=== PATIENT | male | born 1975 | race Caucasian/White ===

== ENCOUNTER 2018-10-04 15:33 | Inpatient (IN) | payer BC ==
[~2018-10-04] VITALS: Ht 167.6 cm; Wt 113.6 kg
[2018-10-04 15:39] VITALS: BP_SYST 213
[2018-10-04] MEDS ORDERED: NACL 0.9% 1,000 ML IV ONE ×2 (15:48→17:30)
[2018-10-04] MEDS ORDERED: MAGNESIUM SULFATE 50 ML IV ONE (16:00)
[2018-10-04] MEDS ORDERED: methylPREDNISolone SOD SUCC/PF 62.5 MG/ML VIAL IVP ONE (16:00)
[2018-10-04] MEDS ORDERED: ASPIRIN 81 MG TAB.CHEW PO ONE (16:00)
[2018-10-04] MEDS ORDERED: IPRATROPIUM BROM 0.5 MG/2.5 ML VIAL.NEB (ATROVENT) IH ONE (16:00)
[2018-10-04] MEDS ORDERED: ALBUTEROL SULFATE 0.083% 2.5 MG/3 ML VIAL.NEB IH ONE (16:00)
[2018-10-04 16:22] LABS: BILIRUBIN,URINE NEGATIVE (NEGATIVE); BLOOD, URINE 1+ (NEGATIVE); CLARITY/URINE CLEAR (CLEAR); COLOR,URINE YELLOW (YELLOW); GLUCOSE,URINE NEGATIVE (NEGATIVE); KETONES,URINE NEGATIVE (NEGATIVE); LEUKOCYTE ESTERASE ,URINE NEGATIVE (NEGATIVE); NITRITE, URINE NEGATIVE (NEGATIVE); PROTEIN URINE 2+ (NEGATIVE); UROBILINOGEN,URINE 0.2 (0.2-1.0)
[2018-10-04 16:28] LABS: RBC,URINE NONE SEEN /HPF (0-3); WBC,URINE 0-3 /HPF (0-3)
[2018-10-04 16:29] LABS: BACTERIA,URINE FEW /HPF (None Seen); MUCUS,URINE None Seen /LPF (None Seen)
[2018-10-04 16:32] LABS: BARBITURATE, URINE NEGATIVE (NEG <=200); BENZODIAZEPINE, URINE NEGATIVE (NEG <=150); CANNABINOID, URINE NEGATIVE (NEG <=50); COCAINE, URINE NEGATIVE (NEG <=150); METHAMPHETAMINES SCREEN,URINE NEGATIVE (NEG <=500); OPIATE, URINE NEGATIVE (NEG <=100); PHENCYCLIDINE SCREEN,URINE NEGATIVE (NEG <=25); UR TRICYCLIC ANTIDEPRESSANTS NEGATIVE (NEG <=300); URINE AMPHETAMINE NEGATIVE (NEG <=500); URINE METHADONE NEGATIVE (NEG <=200); URINE OXYCODONE SCREEN NEGATIVE (NEG <=100); URINE PROPOXYPHENE SCREEN NEGATIVE (NEG <=300)
[2018-10-04 16:49] LABS: BASOPHILS # (AUTO) 0.1 K/uL (0.0-0.2); BASOPHILS % (AUTO) 0.5 % (0.0-2.0); EOSINOPHILS # (AUTO) 0.1 K/uL (0.0-0.4); EOSINOPHILS % (AUTO) 0.7 % (0.0-4.0); HEMOGLOBIN 16.4 g/dL (14.0-18.0); LYMPHOCYTES # (AUTO) 1.5 K/uL (1.0-5.5); LYMPHOCYTES % (AUTO) 11.8 % (20.5-51.5); MEAN CORPUSCULAR HEMOGLOBIN 31 pg (27-31); MEAN CORPUSCULAR HGB CONC 34 % (32-36); MEAN CORPUSCULAR VOLUME 92 fL (79.0-98.0); MONOCYTES % (AUTO) 7.6 % (1.7-9.3); NEUTROPHILS # (AUTO) 10.4 K/uL (1.8-7.7); NEUTROPHILS % (AUTO) 79.4 % (40.0-70.0); PLATELET COUNT (AUTO) 290 K/uL (130-430); RED BLOOD CELL COUNT(AUTO) 5.34 MIL/uL (4.2-6.2); RED CELL DISTRIBUTION WIDTH 13.2 % (9.0-15.0); WHITE BLOOD COUNT (AUTO) 13.1 K/uL (4.8-10.8)
[2018-10-04 16:55] LABS: INR 1.1 (0.80-1.20); PROTHROMBIN TIME 11.6 SECS (9.5-12.5)
[2018-10-04] MEDS ORDERED: hydrALAZINE HCL 20 MG/ML VIAL IVP ONE ×2 (17:00→18:00)
[2018-10-04 17:08] LABS: CALCIUM 8.7 mg/dL (8.4-11.0); CREATININE 1.35 mg/dL (0.55-1.30); POTASSIUM 3.7 mmol/L (3.5-5.1)
[2018-10-04 17:14] LABS: ALBUMIN 3.6 g/dL (3.4-4.8); TOTAL BILIRUBIN 1.1 mg/dL (0.0-1.0)
[2018-10-04] MEDS ORDERED: cefTRIAXone 1 GM IVPB PREMIX 50 ML IV ONE (17:30)
[2018-10-04 18:43] VITALS: BP_SYST 184
[2018-10-04 19:40] VITALS: BP_SYST 176
[2018-10-04 20:25] VITALS: BP_SYST 176
[2018-10-04] MEDS ORDERED: hydrALAZINE HCL 25 MG TABLET PO PRN (21:15)
[2018-10-04] MEDS ORDERED: MORPHINE 4 MG/ML INJ. SYRINGE IVP PRN (21:15)
[2018-10-04] MEDS ORDERED: ACETAMINOPHEN 325 MG TABLET PO PRN (21:15)
[2018-10-04] MEDS ORDERED: ALBUTEROL SULFATE 0.083% 2.5 MG/3 ML VIAL.NEB INH PRN (21:15)
[2018-10-04 21:57] VITALS: BP_SYST 184
[2018-10-04] MEDS ORDERED: FUROSEMIDE 20 MG/2 ML VIAL IVP ONE (22:00)
[2018-10-04] MEDS: NORMAL SALINE 5 ML DISP.SYRIN IVF SCH (22:49)
[2018-10-05] VITALS (7 sets, daily range): BP systolic 129–182
[2018-10-05 06:26] LABS: BASOPHILS % (AUTO) 0.1 % (0.0-2.0); HEMATOCRIT 47.7 % (36-54); HEMOGLOBIN 16.1 g/dL (14.0-18.0); LYMPHOCYTES # (AUTO) 0.7 K/uL (1.0-5.5); LYMPHOCYTES % (AUTO) 6.5 % (20.5-51.5); MEAN CORPUSCULAR HEMOGLOBIN 31 pg (27-31); MEAN CORPUSCULAR HGB CONC 34 % (32-36); MEAN CORPUSCULAR VOLUME 93 fL (79.0-98.0); MONOCYTES # (AUTO) 0.5 K/uL (0.0-1.0); MONOCYTES % (AUTO) 4.9 % (1.7-9.3); NEUTROPHILS # (AUTO) 9.6 K/uL (1.8-7.7); NEUTROPHILS % (AUTO) 88.5 % (40.0-70.0); PLATELET COUNT (AUTO) 249 K/uL (130-430); RED BLOOD CELL COUNT(AUTO) 5.15 MIL/uL (4.2-6.2); RED CELL DISTRIBUTION WIDTH 13.1 % (9.0-15.0); WHITE BLOOD COUNT (AUTO) 10.8 K/uL (4.8-10.8)
[2018-10-05] MEDS: NORMAL SALINE 5 ML DISP.SYRIN IVF SCH ×3 (06:31→20:17)
[2018-10-05 07:05] LABS: POTASSIUM 4.4 mmol/L (3.5-5.1)
[2018-10-05 07:06] LABS: ALBUMIN 3.6 g/dL (3.4-4.8); CALCIUM 8.2 mg/dL (8.4-11.0); CREATININE 1.22 mg/dL (0.55-1.30); TOTAL BILIRUBIN 1.3 mg/dL (0.0-1.0)
[2018-10-05] MEDS: ENOXAPARIN SODIUM 40 MG/0.4 ML SYRINGE SUBCUT SCH (10:31)
[2018-10-05] MEDS: CARVEDILOL 12.5 MG TABLET (COREG) PO SCH ×2 (10:32→20:07)
[2018-10-05] MEDS: ASPIRIN 81 MG TAB.CHEW PO SCH (10:33)
[2018-10-05] MEDS: FUROSEMIDE 40 MG/4 ML VIAL IVP SCH (10:33)
[2018-10-05] MEDS: LISINOPRIL 5 MG TABLET PO SCH (10:33)
[2018-10-05] MEDS ORDERED: cefTRIAXone 1 GM IVPB PREMIX 50 ML IV SCH (18:00)
[2018-10-06 00:32] VITALS: BP_SYST 134
[2018-10-06] MEDS: NORMAL SALINE 5 ML DISP.SYRIN IVF SCH (05:10)
[2018-10-06 08:16] VITALS: BP_SYST 145
[2018-10-06] MEDS: FUROSEMIDE 40 MG/4 ML VIAL IVP SCH (08:18)
[2018-10-06] MEDS: CARVEDILOL 12.5 MG TABLET (COREG) PO SCH (08:18)
[2018-10-06] MEDS: LISINOPRIL 5 MG TABLET PO SCH (08:18)
[2018-10-06] MEDS: ENOXAPARIN SODIUM 40 MG/0.4 ML SYRINGE SUBCUT SCH (08:19)
[2018-10-06] MEDS: ASPIRIN 81 MG TAB.CHEW PO SCH (08:19)
[2018-10-06 08:46] VITALS: BP_SYST 145
== END 2018-10-06 09:20 | disposition short-term general hospital (02) | DRG 304 ==
LOC: SED 15:33 → STU 18:15
PROVIDERS: ADMIT Internal Medicine; ATTEND Internal Medicine
DX: I16.1 Hypertensive emergency (principal); I50.21 Acute systolic (congestive) heart failure; N39.0 Urinary tract infection, site not specified; I47.1 Supraventricular tachycardia; I42.9 Cardiomyopathy, unspecified; Z68.41 Body mass index [BMI] 40.0-44.9, adult; I11.0 Hypertensive heart disease with heart failure; E66.01 Morbid (severe) obesity due to excess calories
CPT/HCPCS: 36415; 36600; 71045; 80053; 80061; 80307; 81000-TC; 82550-TC; 82803-TC; 83036; 83605; 83690-TC; 83880; 84484; 85025; 85379; 85610-TC; 85730-TC; 87040-TC; 87086; 93005; 93306; 94640; 94760; 96365; 96366; 96375; 96376; 99285; G0378; J0360; J0696; J1650; J1940; J2930; J3475; J7613

== ENCOUNTER 2024-03-29 00:37 | Inpatient (IN) | payer BC ==
[~2024-03-29] VITALS: Ht 167.6 cm; Wt 113.1 kg
[2024-03-29] VITALS (12 sets, daily range): BP systolic 149–207; PULSE 80–142; RESP 18–24; TEMP 97.6–98.7; O2SAT 77–99
[2024-03-29] MEDS ORDERED: NITROGLYCERIN LINGUAL 400 mCg/SPRAY ONE (00:58)
[2024-03-29] MEDS: FUROSEMIDE 40 MG/4 ML VIAL IVP ONE (01:00)
[2024-03-29] MEDS: NITROGLYCERIN LINGUAL 400 mCg/SPRAY TL ONE (01:02)
[2024-03-29 01:11] LABS: BASOPHILS # (AUTO) 0.1 K/uL (0.0-0.2); BASOPHILS % (AUTO) 0.6 % (0.0-2.0); EOSINOPHILS # (AUTO) 0.3 K/uL (0.0-0.4); EOSINOPHILS % (AUTO) 3.1 % (0.0-4.0); HEMATOCRIT 48.3 % (36-54); HEMOGLOBIN 16.6 g/dL (14.0-18.0); LYMPHOCYTES # (AUTO) 3.9 K/uL (1.0-5.5); LYMPHOCYTES % (AUTO) 34.5 % (20.5-51.5); MEAN CORPUSCULAR HEMOGLOBIN 31 pg (27-31); MEAN CORPUSCULAR HGB CONC 34 % (32-36); MEAN CORPUSCULAR VOLUME 89 fL (79.0-98.0); MONOCYTES # (AUTO) 1.1 K/uL (0.0-1.0); MONOCYTES % (AUTO) 10.1 % (1.7-9.3); NEUTROPHILS # (AUTO) 5.8 K/uL (1.8-7.7); NEUTROPHILS % (AUTO) 51.7 % (40.0-70.0); PLATELET COUNT (AUTO) 249 K/uL (130-430); RED BLOOD CELL COUNT(AUTO) 5.44 MIL/uL (4.2-6.2); RED CELL DISTRIBUTION WIDTH 13.9 % (9.0-15.0); WHITE BLOOD COUNT (AUTO) 11.2 K/uL (4.8-10.8)
[2024-03-29 01:35] LABS: INFLUENZA TYPE A Negative (NEGATIVE); INFLUENZA TYPE B NEGATIVE (NEGATIVE)
[2024-03-29 01:51] LABS: ANION GAP 13 (5-15); CALCIUM 9.1 mg/dL (8.4-11.0); CARBON DIOXIDE 26 mmol/L (23-29); CHLORIDE 97 mmol/L (98-107); CREATININE 1.27 mg/dL (0.55-1.30); GFR AFRICAN AMERICAN 79 mL/min (>90); GLUCOSE 243 mg/dL (74-106); POTASSIUM 3.1 mmol/L (3.5-5.1); SODIUM SERUM 136 mmol/L (136-145); UREA NITROGEN, BLOOD 20 mg/dL (8-21)
[2024-03-29 01:54] LABS: PROTHROMBIN TIME 10.1 SECS (9.5-12.5)
[2024-03-29 02:00] LABS: GFR NON AFRICAN-AMERICAN 65 mL/min (>90)
[2024-03-29] MEDS: ASPIRIN 325 MG TABLET PO ONE (02:04)
[2024-03-29] MEDS: POTASSIUM CHLORIDE 20 MEQ/PKT PACKET PO ONE (02:22)
[2024-03-29] MEDS: IPRATROPIUM/ALBUTEROL SULFATE 3 ML AMPUL.NEB (DUONEB) INH ONE (04:03)
[2024-03-29] MEDS ORDERED: ONDANSETRON HCL 4 MG/2 ML VIAL IVP PRN ×2 (04:30→10:30)
[2024-03-29] MEDS ORDERED: MORPHINE 2 MG/ML INJ. SYRINGE IVP PRN ×2 (04:30→10:30)
[2024-03-29 05:07] LABS: BLOOD GAS HCO3 23.1 mmol/L (21.0-27.0); BLOOD GAS PCO2 41.7 mmHg (32.0-45.0); BLOOD GAS PH 7.362 (7.350-7.450); BLOOD GAS PO2 211.5 mmHg (75.0-100.0)
[2024-03-29 05:08] LABS: ABG O2 SAT% ESTIMATE 99.4 % (94.0-100.0); BLOOD GAS BASE EXCESS -2.2 mmol/L (-3.0-3.0)
[2024-03-29] MEDS: IPRATROPIUM/ALBUTEROL SULFATE 3 ML AMPUL.NEB (DUONEB) INH SCH (07:05)
[2024-03-29] MEDS: FUROSEMIDE 40 MG/4 ML VIAL IVP SCH (08:28)
[2024-03-29] MEDS: hydrALAZINE HCL 20 MG/ML VIAL IVP ONE (09:24)
[2024-03-29] MEDS ORDERED: NALOXONE HCL 0.4 MG/ML AMP (NARCAN) IVP PRN (10:30)
[2024-03-29] MEDS ORDERED: HYDROcodone/ACETAMIN 5-325 MG TAB (NORCO/ VICODIN) PO PRN (10:30)
[2024-03-29] MEDS ORDERED: HYDROcodone/ACETAMIN 10-325 MG TAB PO PRN (10:30)
[2024-03-29] MEDS: METOPROLOL TARTRATE 25 MG TABLET PO ONE (10:43)
[2024-03-29 11:02] LABS: BASOPHILS % (AUTO) 0.5 % (0.0-2.0); EOSINOPHILS # (AUTO) 0.1 K/uL (0.0-0.4); EOSINOPHILS % (AUTO) 0.9 % (0.0-4.0); HEMATOCRIT 43.7 % (36-54); HEMOGLOBIN 15.4 g/dL (14.0-18.0); LYMPHOCYTES # (AUTO) 1.6 K/uL (1.0-5.5); LYMPHOCYTES % (AUTO) 17.7 % (20.5-51.5); MEAN CORPUSCULAR HEMOGLOBIN 31 pg (27-31); MEAN CORPUSCULAR HGB CONC 35 % (32-36); MEAN CORPUSCULAR VOLUME 88 fL (79.0-98.0); MONOCYTES # (AUTO) 0.6 K/uL (0.0-1.0); MONOCYTES % (AUTO) 7.3 % (1.7-9.3); NEUTROPHILS # (AUTO) 6.5 K/uL (1.8-7.7); NEUTROPHILS % (AUTO) 73.6 % (40.0-70.0); PLATELET COUNT (AUTO) 238 K/uL (130-430); RED BLOOD CELL COUNT(AUTO) 4.95 MIL/uL (4.2-6.2); RED CELL DISTRIBUTION WIDTH 14.6 % (9.0-15.0); WHITE BLOOD COUNT (AUTO) 8.8 K/uL (4.8-10.8)
[2024-03-29 11:11] LABS: BILIRUBIN,URINE NEGATIVE (NEGATIVE); BLOOD, URINE NEGATIVE (NEGATIVE); CLARITY/URINE CLEAR (CLEAR); COLOR,URINE YELLOW (YELLOW); GLUCOSE,URINE 1+ (NEGATIVE); KETONES,URINE NEGATIVE (NEGATIVE); LEUKOCYTE ESTERASE ,URINE NEGATIVE (NEGATIVE); NITRITE, URINE NEGATIVE (NEGATIVE); PH,URINE 5.5 (5.0-8.0); PROTEIN URINE NEGATIVE (NEGATIVE); UROBILINOGEN,URINE 0.2 (0.2-1.0)
[2024-03-29 11:21] LABS: ALBUMIN 3.3 g/dL (3.4-4.8); CALCIUM 8.7 mg/dL (8.4-11.0); CREATININE 1.5 mg/dL (0.55-1.30); POTASSIUM 4.1 mmol/L (3.5-5.1); TOTAL BILIRUBIN 0.7 mg/dL (0.0-1.0)
[2024-03-29 11:29] LABS: BARBITURATE, URINE NEGATIVE (NEG <=200)
[2024-03-29 11:30] LABS: BENZODIAZEPINE, URINE NEGATIVE (NEG <=150); CANNABINOID, URINE NEGATIVE (NEG <=50); COCAINE, URINE NEGATIVE (NEG <=150); METHAMPHETAMINES SCREEN,URINE NEGATIVE (NEG <=500); OPIATE, URINE NEGATIVE (NEG <=100); PHENCYCLIDINE SCREEN,URINE NEGATIVE (NEG <=25); UR TRICYCLIC ANTIDEPRESSANTS NEGATIVE (NEG <=300); URINE AMPHETAMINE NEGATIVE (NEG <=500); URINE METHADONE NEGATIVE (NEG <=200); URINE OXYCODONE SCREEN NEGATIVE (NEG <=100)
[2024-03-29 11:50] LABS: BACTERIA,URINE RARE /HPF (None Seen); RBC,URINE 0-3 /HPF (0-3); WBC,URINE 0-3 /HPF (0-3)
[2024-03-29] MEDS: LOSARTAN POTASSIUM 25 MG TABLET PO ONE (14:31)
[2024-03-29] MEDS: CARVEDILOL 6.25 MG TABLET (COREG) PO ONE (14:31)
[2024-03-29] MEDS ORDERED: DEXTROSE 50% JECT 50 ML DISP.SYRIN IVP PRN (15:00)
[2024-03-29] MEDS ORDERED: GLUCOSE (DEXTROSE) ORAL GEL -Adults PO PRN (15:00)
[2024-03-29] MEDS: INSULIN GLARGINE 100 UNITS/ML, 10 ML VIAL SUBCUT ONE (15:43)
[2024-03-29] MEDS ORDERED: IBUP-23 PO (15:52)
[2024-03-29] MEDS ORDERED: LISI-209 PO ×2 (15:54→16:08)
[2024-03-29] MEDS ORDERED: CARV10CP10 PO (16:10)
[2024-03-29] MEDS: hydrALAZINE HCL 25 MG TABLET PO ONE (16:35)
[2024-03-29] MEDS: INSULIN REGULAR, HUMAN 100 UNITS/ML, 3 ML VIAL (humuLIN R) SUBCUT PRN (18:11)
[2024-03-29] MEDS: IPRATROPIUM/ALBUTEROL SULFATE 3 ML AMPUL.NEB (DUONEB) ONE ×3 (19:49→23:42)
[2024-03-29] MEDS: CARVEDILOL 6.25 MG TABLET (COREG) PO SCH (20:38)
[2024-03-29] MEDS: hydrALAZINE HCL 25 MG TABLET PO SCH (20:39)
[2024-03-29] MEDS ORDERED: LOSARTAN POTASSIUM 25 MG TABLET PO SCH (21:00)
[2024-03-29] MEDS ORDERED: METOPROLOL TARTRATE 25 MG TABLET PO SCH (21:00)
[2024-03-30] VITALS (9 sets, daily range): BP systolic 141–161; PULSE 80–94; RESP 16–18; TEMP 97.2–98.8; O2SAT 94–100
[2024-03-30] MEDS: IPRATROPIUM/ALBUTEROL SULFATE 3 ML AMPUL.NEB (DUONEB) ONE ×6 (03:32→22:34)
[2024-03-30 07:16] LABS: BASOPHILS # (AUTO) 0.1 K/uL (0.0-0.2); BASOPHILS % (AUTO) 0.5 % (0.0-2.0); EOSINOPHILS # (AUTO) 0.2 K/uL (0.0-0.4); EOSINOPHILS % (AUTO) 2.2 % (0.0-4.0); HEMATOCRIT 41.4 % (36-54); HEMOGLOBIN 14.3 g/dL (14.0-18.0); LYMPHOCYTES # (AUTO) 2.3 K/uL (1.0-5.5); LYMPHOCYTES % (AUTO) 23.7 % (20.5-51.5); MEAN CORPUSCULAR HEMOGLOBIN 31 pg (27-31); MEAN CORPUSCULAR HGB CONC 34 % (32-36); MEAN CORPUSCULAR VOLUME 89 fL (79.0-98.0); MONOCYTES % (AUTO) 10.5 % (1.7-9.3); NEUTROPHILS # (AUTO) 6.2 K/uL (1.8-7.7); NEUTROPHILS % (AUTO) 63.1 % (40.0-70.0); PLATELET COUNT (AUTO) 209 K/uL (130-430); RED BLOOD CELL COUNT(AUTO) 4.64 MIL/uL (4.2-6.2); RED CELL DISTRIBUTION WIDTH 14.1 % (9.0-15.0); WHITE BLOOD COUNT (AUTO) 9.9 K/uL (4.8-10.8)
[2024-03-30 07:38] LABS: ALBUMIN 3.1 g/dL (3.4-4.8); CALCIUM 8.7 mg/dL (8.4-11.0); CREATININE 1.62 mg/dL (0.55-1.30); POTASSIUM 4.4 mmol/L (3.5-5.1); TOTAL BILIRUBIN 0.8 mg/dL (0.0-1.0); TOTAL PROTEIN, SERUM 6.6 g/dL (6.4-8.3)
[2024-03-30] MEDS: ATORVASTATIN 20 MG TABLET PO SCH (08:53)
[2024-03-30] MEDS: INSULIN GLARGINE 100 UNITS/ML, 10 ML VIAL SUBCUT SCH (09:00)
[2024-03-30] MEDS: FUROSEMIDE 40 MG/4 ML VIAL IVP SCH (10:31)
[2024-03-30] MEDS: ACETAMINOPHEN 325 MG TABLET PO PRN ×2 (12:19→23:16)
[2024-03-30] MEDS: hydrALAZINE HCL 25 MG TABLET PO ONE (16:46)
[2024-03-30] MEDS: hydrALAZINE HCL 25 MG TABLET PO SCH (21:06)
[2024-03-30] MEDS: CARVEDILOL 12.5 MG TABLET (COREG) PO SCH (21:07)
[2024-03-31] VITALS (11 sets, daily range): BP systolic 146–178; PULSE 85–107; RESP 12–20; TEMP 97.4–98.4; O2SAT 94–99
[2024-03-31] MEDS: IPRATROPIUM/ALBUTEROL SULFATE 3 ML AMPUL.NEB (DUONEB) ONE ×2 (02:48→07:03)
[2024-03-31 04:31] LABS: BASOPHILS # (AUTO) 0.1 K/uL (0.0-0.2); BASOPHILS % (AUTO) 0.6 % (0.0-2.0); EOSINOPHILS # (AUTO) 0.3 K/uL (0.0-0.4); HEMATOCRIT 42.6 % (36-54); HEMOGLOBIN 14.6 g/dL (14.0-18.0); LYMPHOCYTES # (AUTO) 2.5 K/uL (1.0-5.5); LYMPHOCYTES % (AUTO) 27.4 % (20.5-51.5); MEAN CORPUSCULAR HEMOGLOBIN 31 pg (27-31); MEAN CORPUSCULAR HGB CONC 34 % (32-36); MEAN CORPUSCULAR VOLUME 89 fL (79.0-98.0); MONOCYTES # (AUTO) 0.9 K/uL (0.0-1.0); MONOCYTES % (AUTO) 9.8 % (1.7-9.3); NEUTROPHILS # (AUTO) 5.3 K/uL (1.8-7.7); NEUTROPHILS % (AUTO) 59.2 % (40.0-70.0); PLATELET COUNT (AUTO) 210 K/uL (130-430); RED BLOOD CELL COUNT(AUTO) 4.79 MIL/uL (4.2-6.2)
[2024-03-31 04:56] LABS: CALCIUM 8.8 mg/dL (8.4-11.0); CREATININE 1.2 mg/dL (0.55-1.30); POTASSIUM 3.7 mmol/L (3.5-5.1)
[2024-03-31] MEDS: hydrALAZINE HCL 20 MG/ML VIAL IVP PRN (15:29)
[2024-03-31] MEDS: SACUBITRIL/VALSARTAN 24 MG-26 MG 1 TABLET PO ONE (17:15)
[2024-03-31] MEDS: CARVEDILOL 25 MG TABLET (COREG) PO SCH (21:36)
[2024-03-31] MEDS: SACUBITRIL/VALSARTAN 24 MG-26 MG 1 TABLET PO SCH (21:46)
[2024-04-01] VITALS (7 sets, daily range): BP systolic 119–167; PULSE 78–102; RESP 17–18; TEMP 97.8–98.1; O2SAT 95–99
[2024-04-01 05:58] LABS: BASOPHILS # (AUTO) 0.1 K/uL (0.0-0.2); BASOPHILS % (AUTO) 0.7 % (0.0-2.0); EOSINOPHILS # (AUTO) 0.2 K/uL (0.0-0.4); EOSINOPHILS % (AUTO) 1.9 % (0.0-4.0); HEMATOCRIT 43.3 % (36-54); LYMPHOCYTES # (AUTO) 1.8 K/uL (1.0-5.5); LYMPHOCYTES % (AUTO) 20.6 % (20.5-51.5); MEAN CORPUSCULAR HEMOGLOBIN 31 pg (27-31); MEAN CORPUSCULAR HGB CONC 35 % (32-36); MEAN CORPUSCULAR VOLUME 89 fL (79.0-98.0); MONOCYTES # (AUTO) 0.8 K/uL (0.0-1.0); MONOCYTES % (AUTO) 9.7 % (1.7-9.3); NEUTROPHILS # (AUTO) 5.8 K/uL (1.8-7.7); NEUTROPHILS % (AUTO) 67.1 % (40.0-70.0); PLATELET COUNT (AUTO) 223 K/uL (130-430); RED BLOOD CELL COUNT(AUTO) 4.89 MIL/uL (4.2-6.2); RED CELL DISTRIBUTION WIDTH 14.1 % (9.0-15.0); WHITE BLOOD COUNT (AUTO) 8.6 K/uL (4.8-10.8)
[2024-04-01 06:30] LABS: ALBUMIN 3.3 g/dL (3.4-4.8); CREATININE 1.19 mg/dL (0.55-1.30); PHOSPHORUS 3.9 mg/dL (2.7-4.5); POTASSIUM 3.6 mmol/L (3.5-5.1); TOTAL BILIRUBIN 0.8 mg/dL (0.0-1.0); TOTAL PROTEIN, SERUM 6.9 g/dL (6.4-8.3)
[2024-04-01] MEDS: FUROSEMIDE 40 MG TABLET PO SCH (08:22)
[2024-04-01] MEDS ORDERED: SACU1TAB PO (08:52)
[2024-04-01] MEDS ORDERED: LIP20 PO (08:52)
[2024-04-01] MEDS ORDERED: FURO-149 PO (08:52)
[2024-04-01] MEDS ORDERED: COR25 PO (08:52)
[2024-04-01] MEDS ORDERED: HYDR25TA86 PO (08:52)
== END 2024-04-01 11:10 | disposition home or self-care (01) | DRG 291 ==
LOC: SED 00:37 → SIC 04:29 → UNDODISIN 11:37 → STU 14:23 → SMU 03-31 11:45
PROVIDERS: ADMIT Family Medicine; ATTEND Family Medicine
PROC: 5A09357 Assistance with Respiratory Ventilation, Less than 24 Consecutive Hours, Continuous Positive Airway Pressure (ICD-10-PCS; principal; 2024-03-29)
DX: I11.0 Hypertensive heart disease with heart failure (principal); I50.23 Acute on chronic systolic (congestive) heart failure; J96.01 Acute respiratory failure with hypoxia; N17.9 Acute kidney failure, unspecified; I16.1 Hypertensive emergency; Z68.41 Body mass index [BMI] 40.0-44.9, adult; I42.8 Other cardiomyopathies; Z20.822 Contact with and (suspected) exposure to COVID-19; E66.01 Morbid (severe) obesity due to excess calories; D72.829 Elevated white blood cell count, unspecified; E11.65 Type 2 diabetes mellitus with hyperglycemia; E88.09 Other disorders of plasma-protein metabolism, not elsewhere classified; Z91.148 Patient's other noncompliance with medication regimen for other reason; E11.21 Type 2 diabetes mellitus with diabetic nephropathy
CPT/HCPCS: 36415; 36600; 71045; 80048; 80053; 80307; 81000; 81001; 81015; 82803; 82948; 83037; 83605; 83735; 83880; 84100; 84443; 84484; 85025; 85379; 85610; 85730; 87040; 87081; 93306; 94070; 94640; 94760; 99291; G0378; J0360; J1815; J1940